=== PATIENT | female | born 1935 | race Caucasian/White ===

== ENCOUNTER 2016-08-04 09:35 | Inpatient (IN) ==
[~2016-08-04 09:35] MED LIST: ASPIRIN 325 MG TABLET PO ONE; DEXTROSE 5% NACL 0.45% 1,000 ML IV SCH; DIAZEPAM 5 MG TABLET PO ONE; MAGNESIUM SULF RIDER 2 GM in PREMIX 1 EACH IV PRN; POTASSIUM CHLORIDE RIDER 10 MEQ in PREMIX 1 EACH IV PRN; diphenhydrAMINE CAP 25 MG CAPSULE PO ONE; methylPREDNISolone 4 MG TABLET PO ONE
[2016-08-04] MEDS ORDERED: methylPREDNISolone 4 MG TABLET PO ONE (10:30)
[2016-08-04 10:46] LABS: Basophils % 0.1 % (0.0-0.8); Hematocrit 38.7 VOL% (35.7-47.0); Hemoglobin 13.5 GM/DL (12.0-16.0); Immature Granulocytes % 0.8 %; Immature Granulocytes Absolute 0.09 #; Lymphocytes # 1.4 10*3/uL (1.4-4.0); Lymphocytes % 11.5 % (21.3-54.2); Mean Corpuscular HGB Conc 34.9 GM/DL (32-36); Mean Corpuscular Hemoglobin 32 PG (27-34); Mean Corpuscular Volume 91.9 FL (87-102); Mean Platelet Volume 10.2 FL (9.6-12.0); Monocytes # 0.2 10*3/uL (0.11-0.8); Monocytes % 1.8 % (1.7-12.7); Neutrophils # 10.1 10*3/uL (1.4-7.4); Neutrophils % 85.8 % (38.7-73.9); Platelet Count 213 T/CUMM (130-400); Red Blood Count 4.21 MC/CUMM (3.8-5.5); Red Cell Distribution Width 12.6 % (9.3-17.3); White Blood Count 11.8 T/CUMM (4-12)
[2016-08-04] MEDS ORDERED: DIAZEPAM 5 MG TABLET ONE (11:01)
[2016-08-04] MEDS ORDERED: diphenhydrAMINE CAP 25 MG CAPSULE ONE (11:02)
[2016-08-04 11:18] LABS: Calcium 9.6 MG/DL (8.5-10.1); Magnesium 2.4 MG/DL (1.8-2.4); Osmolality,Calculated 281.5 MOS/KG (273-304); Potassium 3.4 MMOL/L (3.5-5.1)
--- NOTE | 2016-08-04 11:48 | XRay Report ---
XR chest 1V portable Indication: Preop respiratory evaluation prior to left heart catheter. Comparison: Chest x-ray 04/06/2016 Technique: Portable AP chest was performed. Findings: The heart is borderline in size, stable. Prior sternotomy is stable. Pulmonary vasculature demonstrates no specific abnormality. Hilar structures demonstrate fairly symmetric appearance. The lungs appear clear. Bones and soft tissues demonstrate no evidence of acute pathology. Impression: 1. No evidence of acute pathology. 08/04/2016 11:45 AM PROCEDURE INTERPRETED AT [facility] DEPARTMENT OF RADIOLOGY Final Report Signed by: Dr. Maximo Mendoza
[2016-08-04] MEDS ORDERED: LIDOCAINE 1%/EPI INJ 20 ML VIAL ONE (12:02)
[2016-08-04] MEDS ORDERED: HEPARIN/NACL 0.9% 2 UNITS/ML 1,000 ML IV ONE (12:02)
[2016-08-04] MEDS ORDERED: fentaNYL 100 MCG/2 ML VIAL ONE (12:59)
[2016-08-04] MEDS ORDERED: MIDAZOLAM 2 MG/2 ML VIAL ONE (12:59)
--- NOTE | 2016-08-04 13:03 | History and Physical Update ---
Sedation H&P Update - History and Physical H&P was reviewed, the patient examined and there: are no changes in the patients condition since last H&P was completed. - Sedation Plan for Sedation: moderate Patient Consent: Procedure disscussed with patient and patinet has consented., Risks and benefits were discussed with patient,including infection,, bleeding, injury to surrounding structures, seizure, temporary nerve, Patient understands and accepts potential risks/benefits and agrees to, proceed. ASA Class: IV Airway Assessment: Class III: Soft palate, base of uvula visible
[2016-08-04] MEDS ORDERED: HEPARIN 5,000 UNIT/1 ML VIAL ONE (13:12)
[2016-08-04] MEDS ORDERED: TIROFIBAN 5,000 MCG/100 ML PREMIX IV ONE (13:12)
[2016-08-04] MEDS ORDERED: TIROFIBAN 5,000 MCG/100 ML PREMIX IV SCH (13:27)
[2016-08-04] MEDS ORDERED: CLOPIDOGREL 300 MG TABLET ONE (13:37)
--- NOTE | 2016-08-04 13:57 | Cardiac Catheterization ---
Date of Procedure:: 08/04/16 Pre-op Diagnosis: 81-year-old lady with a history of severe lung disease who has a tight stenosis of the diagonal/LAD graft which we have treated medically and now is for percutaneous intervention related to medical management failure. Risks benefits and alternatives have been reviewed with the patient and with her family. Post-op diagnosis: same Procedure: Procedure performed: 1: Coronary angiography of the left coronary bypass graft 2: Intracoronary stent placement using a Synergy drug-eluting stent which was a 4.0 x 20 mm Synergy postdilated using a 5.0 x 20 mm via track peripheral arterial balloon dilated to 5.31 mm. 3: Right femoral sheath angiography 4: Angio-Seal closure right femoral arteriotomy site Description of procedure: After obtaining informed consent the patient brought to the Hat Sizer of the right groin was prepped and draped in usual sterile manner. Using intravenous sedation local anesthesia needle was inserted right femoral artery without difficulty and a 6 Filipino sheath was positioned without difficulty A left coronary bypass catheter was used advanced over guidewire under fluoroscopic control the ascending aorta where the ostium of the coronary bypass graft was engaged. An 014 BMW wire was advanced to the distal vessel and a 4.0 x 20 mm Synergy drug-eluting stent was advanced to the area stenosis deployed to a maximum 19 marian. At this point the delivery balloon was removed and a 5.0 x 20 mm via track renal balloon was advanced to the stent and inflated to maximum 13 marian which corresponded to a balloon diameter 5.31 mm. There appeared to be good stepup and stepdown both proximal and distal. There was haziness noted of the proximal stent edge but CATHERINE grade III flow was noted. We elected to leave this area alone. The postdilatation balloon was removed and the guidewire was pulled back into the guide. Repeat angiography confirmed good result with good resolution of the stenosis and CATHERINE grade III flow down the vessel. At this point the balloon and wire were removed. The guide was then removed from the sheath. The patient underwent right femoral sheath angiography which demonstrated anatomy appropriate for Angio- Seal closure. This was performed without difficulty. Good hemostasis was obtained. Patient was transferred to the CCU having suffered no significant immediate complications. Coronary angiography: After the above-described procedure lesion went from roughly 80% flow-limiting to less than 0% flow-limiting post balloon inflation. There appear to be some haziness proximally that we elected to observe. She is to continue her Plavix indefinitely. She will be transferred to the CCU for post PCI observation. Conclusions: 1: Successful percutaneous intervention of a LAD graft with a 4.0 x 20 mm Synergy drug-eluting stent dilated to 5.31 mm 2: Angio-Seal right femoral arteriotomy site Discussion & recommendations: Patient presents with medical failure with a known significant stenosis of the LAD graft. She has now undergone stenting with post balloon dilatation up to 5.31 mm which matches the diameter of the vein graft. She is stable post procedure and I think she should improve symptomatically. Findings have been reviewed with the patient and with her family. Anesthesia: moderate conscious sedation Surgeon / Physician: Jeffrey Sewell Estimated blood loss: minimal Specimens: none sent Condition: stable - Medications / Follow-up
[2016-08-04] MEDS ORDERED: NITROGLYCERIN SL 0.4 MG TABLET SL PRN (13:58)
[2016-08-04] MEDS ORDERED: MORPHINE 2 MG/1 ML SYRINGE IV PRN (13:58)
[2016-08-04] MEDS ORDERED: fentaNYL 100 MCG/2 ML VIAL IV PRN (13:58)
--- NOTE | 2016-08-04 14:30 | EKG Report ---
Please refer to the EKG image. Final interpretation is pending.
--- NOTE | 2016-08-04 14:34 | EKG Report ---
Please refer to the EKG image. Final interpretation is pending.
[2016-08-04] MEDS: FUROSEMIDE 40 MG TABLET PO SCH (20:48)
[2016-08-04] MEDS: CARVEDILOL 12.5 MG TABLET PO SCH (20:48)
[2016-08-04] MEDS ORDERED: LOVASTATIN 20 MG TABLET PO SCH (21:00)
[2016-08-05 05:30] LABS: Basophils % 0.1 % (0.0-0.8); Hematocrit 32.6 VOL% (35.7-47.0); Hemoglobin 11.2 GM/DL (12.0-16.0); Immature Granulocytes % 0.8 %; Immature Granulocytes Absolute 0.13 #; Lymphocytes # 1.1 10*3/uL (1.4-4.0); Lymphocytes % 6.8 % (21.3-54.2); Mean Corpuscular HGB Conc 34.4 GM/DL (32-36); Mean Corpuscular Hemoglobin 32 PG (27-34); Mean Corpuscular Volume 93.9 FL (87-102); Mean Platelet Volume 10.3 FL (9.6-12.0); Monocytes # 0.7 10*3/uL (0.11-0.8); Monocytes % 4.5 % (1.7-12.7); Neutrophils # 14.4 10*3/uL (1.4-7.4); Neutrophils % 87.8 % (38.7-73.9); Platelet Count 174 T/CUMM (130-400); Red Blood Count 3.47 MC/CUMM (3.8-5.5); Red Cell Distribution Width 12.8 % (9.3-17.3); White Blood Count 16.4 T/CUMM (4-12)
[2016-08-05 06:15] LABS: Blood Urea Nitrogen 22 MG/DL (7-18); Calcium 8.7 MG/DL (8.5-10.1); Glucose 157 MG/DL (74-106); Osmolality,Calculated 286.3 MOS/KG (273-304); Sodium 141 MMOL/L (136-145)
[2016-08-05 06:18] LABS: Troponin I Only 0.737 NG/ML (0.00-0.045)
[2016-08-05] MEDS ORDERED: LEVOTHYROXINE 25 MCG TABLET PO SCH (07:00)
--- NOTE | 2016-08-05 07:10 | EKG Report ---
Please refer to the EKG image. Final interpretation is pending.
--- NOTE | 2016-08-05 07:47 | Discharge Summary ---
Hospital Course - Hospital Course Hospital Course: Jive Developer: Dr. Sewell PCP: RITA Song Piggery Worker: Dr. Steve Ms. Scott, 81-year-old female was admitted to [facility] for elective heart catheterization per Dr. Sewell August 04, 2016. She has a medical history of CAD, paroxysmal atrial fibrillation, COPD, congestive heart failure, dyslipidemia, hypertension and hypercholesterolemia. She has a known significant stenosis of the LAD graft which has been treated medically. However , her symptoms persisted and left heart catheterization was then scheduled. She underwent heart catheterization per Dr. Sewell yesterday with the following impressions noted: Impressions: 1: Successful percutaneous intervention of a LAD graft with a 4.0 x 20 mm Synergy drug-eluting stent dilated to 5.31 mm 2: Angio-Seal right femoral arteriotomy site Discussion & recommendations: Patient presents with medical failure with a known significant stenosis of the LAD graft. She has now undergone stenting with post balloon dilatation up to 5.31 mm which matches the diameter of the vein graft. Post catheterization patient was transported to the cardiac care unit in stable condition. Overnight, she has done well and has been without complications. She does have a contrast allergy and she was treated and with Solu-Medrol and Benadryl precatheterization. This morning her white blood cell count is elevated with left shift. Patient is afebrile and denies fever, chills, cough, dysuria and abdominal pain. This is most likely secondary to steroid therapy. Patient is without chest pain, heaviness and tightness. She also denies shortness of breath. Reports that she feels much better after stent placement. Right groin is soft without pitting, hematoma and bruit. Distal pulses are present. Patient has ambulated around the room without difficulty. Right groin has remained stable post ambulation. Right groin precautions have been reviewed with the patient. She verbalized understanding. I have also stressed the importance of compliance with dual antiplatelet therapy. She verbalized understanding. She will be discharged home on Plavix and aspirin. She will not be discharged home on JOSUÉ inhibitor or ARB as her blood pressure will not allow at this time. Will try to initiate this medication as an outpatient. Vital signs are stable this morning. Labs have been reviewed. Creatinine is 1.2, this is unchanged from admission. She will be scheduled an appointment with Dr. Sewell in 2 weeks with CBC, BMP, magnesium and EKG. She tells me that she has an appointment with better with RITA Song and Dr. Steve this month. She will keep these appointments. Patient is anxious for discharge home. Having felt that she has met maximal medical therapy, she will be discharged home in stable condition. Patient verbalized understanding of discharge instructions and discharge medications. - Time spent with patient Time with patient DS: Less than 30 minutes Diagnosis - Discharge Diagnosis (1) Status post coronary artery stent placement Status: Chronic (2) Coronary artery disease Status: Chronic (3) Hypertension Status: Chronic (4) Hyperlipidemia Status: Chronic (5) Paroxysmal atrial fibrillation Status: Chronic (6) COPD (chronic obstructive pulmonary disease) Status: Chronic Specialty Discharge - Follow Up or Referrals Follow up with: Jeffrey Sewell MD [Physician] - 2 Weeks (Please schedule follow-up appointment with Dr. Sewell in 2 weeks with CBC, BMP, magnesium and EKG.) Discharge Plan - Discharge Data Disposition: Disch To Home/Self Care Condition at Discharge: Stable Discharge Diet: heart healthy Activity: no lifting (No lifting or squatting 1 week.), other (Post cath expectations) Hygiene: keep area(s) dry (Post cath expectations) Weight Bearing at Discharge: other (Post cath expectations) Driving: other (Post cath expectations) Contact your physician if you experience:: fever over 101, Difficulty voiding, Redness or swelling, Nausea/Vomiting, Shortness of breath, Bleeding, pain uncontrolled by pain medications - Discharge Medications Continue Aspirin [Ecotrin] 81 mg PO DAILY Carvedilol 12.5 mg PO BID Furosemide Tab [Lasix Tab] 40 mg PO BID Nitroglycerin [Nitroglycerin SL Tab] 0.4 mg SL Q5M PRN PRN Reason: Chest Pain Viper-3 Fatty Acids [Fish Oil Concentrate] 1,000 mg PO DAILY Levothyroxine Tab [Synthroid Tab] 25 mcg PO DAILY Amlodipine Besylate 5 mg PO DAILY Lovastatin 40 mg PO BEDTIME Clopidogrel [Plavix] 75 mg PO DAILY #30 tablet Montelukast Tab [Singulair Tab] 10 mg PO DAILY - Follow Up or Referral - Forms/Instructions Instructions: Left Heart Catheterization (DC), Heart Healthy Diet (GEN), Coronary Intravascular Stent Placement (DC) Exam - Constitutional Vitals: Period Temp Pulse Resp BP Sys/Hernandez Pulse Ox Last 24 Hr 96.6 F-98.3 F 59-71 14-25 100-147/46-78 94-100 Exam: General: Appears well with no apparent distress. Pleasant and cooperative. Appears comfortable. HEENT: PERRL, normocephalic, atraumatic. Mucous membranes moist. No jaundice noted. Conjunctiva moist and clear, sclerae anicteric Neck: No JVD/HJR, no thyromegaly or lymphadenopathy noted. No carotid bruit appreciated Cardiac: Regular rate and rhythm. No murmur rub or gallop. Lungs: Clear to auscultation without accessory muscle use to assist the respiratory pattern. Wearing oxygen intermittently Abdomen: Soft, bowel sounds normoactive. Nontender and nondistended. No abdominal bruit or thrill noted. No masses noted. Extremities: No clubbing, cyanosis noted. No edema noted. Upper extremity pulses 2+. Lower extremity pulses 2+. Capillary refill less than 3 seconds. Right groin soft without bleeding, hematoma and bruit. Distal pulses present. Skin: No unusual lesions or rashes. No skin breakdown appreciated. Neuro: Awake, alert and oriented 3. Moves all extremities well without hemiparesis or paralysis. No essential tremor is appreciated. Discharge Results Procedures and tests throughout hospitalization: Pending Orders 08/04/16 MRSA Surveillence, Inf Control Routine 08/04/16 06:00 CL heart Routine Labs on day of discharge: Labs from last 24 hours 08/05/16 08/05/16 08/04/16 05:19 05:19 14:26 WBC 16.4 H D RBC 3.47 L Hgb 11.2 L D Hct 32.6 L MCV 93.9 MCH 32 MCHC 34.4 RDW 12.8 Plt Count 174 MPV 10.3 Neut % (Auto) 87.8 H Lymph % (Auto) 6.8 L [place] % (Auto) 4.5 Eos % (Auto) 0.0 Baso % (Auto) 0.1 Neut # (Auto) 14.4 H Lymph # (Auto) 1.1 L [place] # (Auto) 0.7 Eos # (Auto) 0.0 Baso # (Auto) 0.0 Immature Gran % 0.8 Nucleated RBC % 0.0 Immature Gran # 0.13 Nucleated RBCs # 0.00 INR PT Patient/Control Mix Circ Anticoag PTT Sodium 141 Potassium 4.0 Chloride 102 Carbon Dioxide 32 Anion Gap 11.0 BUN 22 H Creatinine 1.20 H GFR Calculation 43 BUN/Creatinine Ratio 18.00 Glucose 157 H Calculated Osmolality 286.3 Calcium 8.7 Magnesium Total Creatine Kinase 108 CK-MB (CK-2) 3.0 Troponin I 0.737 H D < 0.015 08/04/16 08/04/16 08/04/16 10:35 10:35 10:35 WBC RBC Hgb Hct MCV MCH MCHC RDW Plt Count MPV Neut % (Auto) Lymph % (Auto) [place] % (Auto) Eos % (Auto) Baso % (Auto) Neut # (Auto) Lymph # (Auto) [place] # (Auto) Eos # (Auto) Baso # (Auto) Immature Gran % Nucleated RBC % Immature Gran # Nucleated RBCs # INR 1.0 PT Patient/Control Mix 11.0 Circ Anticoag PTT 25.0 Sodium 139 Potassium 3.4 L Chloride 99 Carbon Dioxide 33 H Anion Gap 10.4 BUN 19 H Creatinine 1.20 H GFR Calculation 44 BUN/Creatinine Ratio 15.00 Glucose 153 H Calculated Osmolality 281.5 Calcium 9.6 Magnesium 2.4 Total Creatine Kinase CK-MB (CK-2) Troponin I 08/04/16 10:35 WBC 11.8 RBC 4.21 Hgb 13.5 Hct 38.7 MCV 91.9 MCH 32 MCHC 34.9 RDW 12.6 Plt Count 213 MPV 10.2 Neut % (Auto) 85.8 H Lymph % (Auto) 11.5 L [place] % (Auto) 1.8 Eos % (Auto) 0.0 Baso % (Auto) 0.1 Neut # (Auto) 10.1 H Lymph # (Auto) 1.4 [place] # (Auto) 0.2 Eos # (Auto) 0.0 Baso # (Auto) 0.0 Immature Gran % 0.8 Nucleated RBC % 0.0 Immature Gran # 0.09 Nucleated RBCs # 0.00 INR PT Patient/Control Mix Circ Anticoag PTT Sodium Potassium Chloride Carbon Dioxide Anion Gap BUN Creatinine GFR Calculation BUN/Creatinine Ratio Glucose Calculated Osmolality Calcium Magnesium Total Creatine Kinase CK-MB (CK-2) Troponin I - Imaging and Cardiology Cardiology Procedure: report reviewed by me DS: Provider Date of admission: 08/04/16 Primary care physician: Carola Jacobs NP Attending physician on admission: Dr. Sewell Consults: 08/04/16 13:58 Consult to Cardiac Rehabilitation [CONS] Routine Reason for Cardiac Rehabilitation: Risk Factor Modification Discharging clinician: Dianna Miller NP Expected date of discharge: 08/05/16
[2016-08-05] MEDS: CARVEDILOL 12.5 MG TABLET PO SCH (08:17)
[2016-08-05] MEDS: OMEGA 3 ACID ETHYL ESTERS 1 GM CAPSULE PO SCH ×2 (08:17→08:20)
[2016-08-05] MEDS: FUROSEMIDE 40 MG TABLET PO SCH (08:17)
[2016-08-05] MEDS ORDERED: amLODIPine 5 MG TABLET PO SCH (09:00)
[2016-08-05] MEDS ORDERED: ASPIRIN EC 81 MG TABLET PO SCH ×2 (09:00)
[2016-08-05] MEDS ORDERED: CLOPIDOGREL 75 MG TABLET PO SCH (09:00)
[2016-08-05] MEDS ORDERED: PANTOPRAZOLE 40 MG TABLET PO SCH (09:00)
[2016-08-05] MEDS ORDERED: MONTELUKAST 10 MG TABLET PO SCH (09:00)
[2016-08-05 10:11] VITALS: BP 136/61
== END 2016-08-05 10:40 | disposition home or self-care (01) | DRG 249 ==
LOC: N.CL 09:35 → N.CC 13:58 → EDSDCBED 14:09 → N.CL 08-05 10:40 → N.CC 08-12 09:59
PROVIDERS: ADMIT Internal Medicine Interventional Cardiology; ATTEND Internal Medicine Interventional Cardiology
PROC: CLDESPG (ICD-10-PCS; 2016-08-04 13:15)